=== PATIENT | female | born 1970 | race Two or more races ===

== ENCOUNTER 2019-05-07 10:46 | Inpatient (IN) | payer SELFPAY ==
[~2019-05-07] VITALS: Ht 165.1 cm; Wt 45.4 kg
[2019-05-07 10:51] VITALS: BP 128/88
[2019-05-07] MEDS ORDERED: CALC-1305 PO (13:00)
[2019-05-07] MEDS ORDERED: FERR220E24 PO (13:00)
[2019-05-07] MEDS ORDERED: METO-485 PO (13:00)
[2019-05-07] MEDS ORDERED: [UNRECOGNIZED DRUG - CODE] TP (13:00)
[2019-05-07] MEDS ORDERED: IBUP-2213 PO (13:00)
[2019-05-07] MEDS ORDERED: LACT10SO93 PO (13:00)
[2019-05-07] MEDS ORDERED: KETO2CRE3 TP (13:00)
[2019-05-07] MEDS ORDERED: FLEPED RC (13:00)
[2019-05-07] MEDS ORDERED: ACET-1182 PO (13:00)
[2019-05-07] MEDS ORDERED: [UNRECOGNIZED DRUG - CODE] PO (13:00)
[2019-05-07] MEDS ORDERED: BISA-213 RC (13:00)
[2019-05-07] MEDS ORDERED: IPRA3AMP2 IH (13:00)
[2019-05-07] MEDS ORDERED: MIRABULK PO (13:00)
[2019-05-07] MEDS ORDERED: MULT-153 PO (13:00)
[2019-05-07] MEDS ORDERED: MAGN400S60 PO (13:00)
[2019-05-07] MEDS ORDERED: BACL10TA4 PO (13:00)
[2019-05-07] MEDS ORDERED: METR250T2 VG (13:00)
[2019-05-07 13:02] LABS: BASOPHILS % (AUTO) 0.5 % (0.0-2.0); EOSINOPHILS # (AUTO) 0.1 K/uL (0-0.4); HEMATOCRIT 40.1 % (36-48); HEMOGLOBIN 12.8 g/dL (12.0-16.0); LYMPHOCYTES # (AUTO) 1.4 K/uL (2.5-16.5); LYMPHOCYTES % (AUTO) 19.1 % (20.5-51.1); MEAN CORPUSCULAR HEMOGLOBIN 26 pg (27-31); MEAN CORPUSCULAR HGB CONC 32 g/dL (33-37); MEAN CORPUSCULAR VOLUME 80.5 fL (80-94); MONOCYTES # (AUTO) 0.6 K/uL (0.8-1.0); MONOCYTES % (AUTO) 8.1 % (1.7-9.3); NEUTROPHILS # (AUTO) 5.4 K/uL (1.8-7.7); NEUTROPHILS % (AUTO) 71.3 % (42.2-75.2); PLATELET COUNT (AUTO) 267 K/uL (140-450); RED BLOOD CELL COUNT(AUTO) 4.98 MIL/uL (4.20-5.40); WHITE BLOOD COUNT (AUTO) 7.5 K/uL (4.8-10.8)
[2019-05-07 13:15] LABS: PROTHROMBIN TIME 9.6 secs (10.8-13.4)
[2019-05-07 13:17] LABS: ALBUMIN 3.5 g/dL (3.4-5.0); ANION GAP 11.5 (8-16); CARBON DIOXIDE 31.9 mmol/L (21-32); CREATININE 0.9 mg/dL (0.6-1.3); POTASSIUM 4.4 mmol/L (3.5-5.1); TOTAL BILIRUBIN 0.3 mg/dL (0.0-1.0)
[2019-05-07 14:11] VITALS: BP 113/73
[2019-05-07] MEDS ORDERED: LORazepam 2 MG/ML VIAL IVP PRN (17:25)
[2019-05-07] MEDS ORDERED: ALBUTEROL SULFATE/IPRATROPIU 3 ML SOL IH PRN (17:25)
[2019-05-07] MEDS ORDERED: ONDANSETRON 4 MG/2 ML VIAL IVP PRN (17:25)
[2019-05-07] MEDS: DEXT 5% / NACL 0.45% 1,000 ML IV SCH (17:32)
[2019-05-07 19:00] VITALS: BP 125/73
[2019-05-07 20:00] VITALS: BP 132/82
[2019-05-08] VITALS: BP 160/83
[2019-05-08] MEDS: DEXT 5% / NACL 0.45% 1,000 ML IV SCH ×3 (03:23→21:00)
[2019-05-08 04:00] VITALS: BP 119/71
[2019-05-08 07:22] LABS: BASOPHILS # (AUTO) 0.1 K/uL (0.00-0.22); BASOPHILS % (AUTO) 1.2 % (0.0-2.0); EOSINOPHILS # (AUTO) 0.1 K/uL (0-0.4); EOSINOPHILS % (AUTO) 1.2 % (0.0-4.0); HEMATOCRIT 37.4 % (36-48); HEMOGLOBIN 11.9 g/dL (12.0-16.0); LYMPHOCYTES # (AUTO) 1.2 K/uL (2.5-16.5); MEAN CORPUSCULAR HEMOGLOBIN 26 pg (27-31); MEAN CORPUSCULAR HGB CONC 32 g/dL (33-37); MEAN CORPUSCULAR VOLUME 80.7 fL (80-94); MONOCYTES # (AUTO) 0.4 K/uL (0.8-1.0); MONOCYTES % (AUTO) 7.7 % (1.7-9.3); NEUTROPHILS % (AUTO) 68.9 % (42.2-75.2); PLATELET COUNT (AUTO) 266 K/uL (140-450); RED BLOOD CELL COUNT(AUTO) 4.63 MIL/uL (4.20-5.40); RED CELL DISTRIBUTION WIDTH 14.9 % (11.6-13.7); WHITE BLOOD COUNT (AUTO) 5.9 K/uL (4.8-10.8)
[2019-05-08 07:26] LABS: CARBON DIOXIDE 29.8 mmol/L (21-32); CREATININE 0.9 mg/dL (0.6-1.3); POTASSIUM 3.8 mmol/L (3.5-5.1)
[2019-05-08 11:00] VITALS: BP 117/63
[2019-05-08] MEDS ORDERED: MORPHINE SULFATE 4 MG/ML SYR ONE (14:31)
[2019-05-08] MEDS ORDERED: MORPHINE SULFATE 4 MG/ML SYR IVP SCH (14:38)
[2019-05-08 19:00] VITALS: BP 115/83
[2019-05-09] VITALS: BP 139/82
[2019-05-09 07:10] LABS: BASOPHILS % (AUTO) 0.2 % (0.0-2.0); EOSINOPHILS # (AUTO) 0.1 K/uL (0-0.4); EOSINOPHILS % (AUTO) 1.3 % (0.0-4.0); HEMATOCRIT 35.8 % (36-48); HEMOGLOBIN 11.4 g/dL (12.0-16.0); LYMPHOCYTES # (AUTO) 1.2 K/uL (2.5-16.5); LYMPHOCYTES % (AUTO) 18.2 % (20.5-51.1); MEAN CORPUSCULAR HEMOGLOBIN 26 pg (27-31); MEAN CORPUSCULAR HGB CONC 32 g/dL (33-37); MEAN CORPUSCULAR VOLUME 81.2 fL (80-94); MONOCYTES # (AUTO) 0.5 K/uL (0.8-1.0); MONOCYTES % (AUTO) 7.9 % (1.7-9.3); NEUTROPHILS # (AUTO) 4.9 K/uL (1.8-7.7); NEUTROPHILS % (AUTO) 72.4 % (42.2-75.2); PLATELET COUNT (AUTO) 244 K/uL (140-450); RED BLOOD CELL COUNT(AUTO) 4.41 MIL/uL (4.20-5.40); WHITE BLOOD COUNT (AUTO) 6.8 K/uL (4.8-10.8)
[2019-05-09 07:20] LABS: ANION GAP 11.9 (8-16); CARBON DIOXIDE 30.9 mmol/L (21-32); CREATININE 0.8 mg/dL (0.6-1.3); POTASSIUM 3.8 mmol/L (3.5-5.1)
[2019-05-09 08:00] VITALS: BP 112/56
[2019-05-09] MEDS: DEXT 5% / NACL 0.45% 1,000 ML IV SCH ×2 (10:11→19:23)
[2019-05-09] MEDS ORDERED: ceFAZolin 1,000 MG VIAL ONE (14:02)
[2019-05-09] MEDS ORDERED: diphenhydrAMINE 50 MG/ML VIAL ONE (14:08)
[2019-05-09] MEDS ORDERED: fentaNYL 0.05 MG/ML VIAL ONE (14:09)
[2019-05-09] MEDS ORDERED: MIDAZOLAM 2 MG/2 ML VIAL ONE (14:09)
[2019-05-09] MEDS ORDERED: fentaNYL 0.05 MG/ML VIAL IVP ONE (14:13)
[2019-05-09] MEDS ORDERED: MIDAZOLAM 2 MG/2 ML VIAL IVP ONE (14:15)
[2019-05-09 16:00] VITALS: BP 131/84
[2019-05-10 00:15] VITALS: BP 130/93
[2019-05-10] MEDS: DEXT 5% / NACL 0.45% 1,000 ML IV SCH ×3 (02:39→17:09)
[2019-05-10 06:40] LABS: BASOPHILS % (AUTO) 0.2 % (0.0-2.0); EOSINOPHILS # (AUTO) 0.1 K/uL (0-0.4); EOSINOPHILS % (AUTO) 1.6 % (0.0-4.0); HEMATOCRIT 32.5 % (36-48); HEMOGLOBIN 10.4 g/dL (12.0-16.0); LYMPHOCYTES # (AUTO) 1.6 K/uL (2.5-16.5); LYMPHOCYTES % (AUTO) 22.5 % (20.5-51.1); MEAN CORPUSCULAR HEMOGLOBIN 26 pg (27-31); MEAN CORPUSCULAR HGB CONC 32 g/dL (33-37); MEAN CORPUSCULAR VOLUME 80.3 fL (80-94); MONOCYTES # (AUTO) 0.6 K/uL (0.8-1.0); MONOCYTES % (AUTO) 9.1 % (1.7-9.3); NEUTROPHILS # (AUTO) 4.7 K/uL (1.8-7.7); NEUTROPHILS % (AUTO) 66.6 % (42.2-75.2); PLATELET COUNT (AUTO) 215 K/uL (140-450); RED BLOOD CELL COUNT(AUTO) 4.05 MIL/uL (4.20-5.40); RED CELL DISTRIBUTION WIDTH 14.7 % (11.6-13.7)
[2019-05-10 07:01] LABS: ANION GAP 10.1 (8-16); CREATININE 0.9 mg/dL (0.6-1.3); POTASSIUM 4.1 mmol/L (3.5-5.1)
[2019-05-10] MEDS ORDERED: SENNA 8.6 MG TAB PO SCH (10:35)
[2019-05-10] MEDS ORDERED: MAGNESIUM CITRATE 300 ML BTL PO SCH (10:40)
[2019-05-10 16:00] VITALS: BP 128/78
[2019-05-11] MEDS ORDERED: LACTULOSE 20 GM/30 ML UDC PO SCH (09:00)
== END 2019-05-10 19:15 | DRG 393 ==
LOC: MED 10:46 → MTU 12:18
PROVIDERS: ADMIT Preventive Medicine Preventive Medicine/Occupational Environmental Medicine; ATTEND Preventive Medicine Preventive Medicine/Occupational Environmental Medicine
PROC: 0DH63UZ Insertion of Feeding Device into Stomach, Percutaneous Approach (ICD-10-PCS; principal; 2019-05-09 16:50)
DX: K94.23 Gastrostomy malfunction (principal); G82.50 Quadriplegia, unspecified; K21.9 Gastro-esophageal reflux disease without esophagitis; Y83.3 Surgical operation with formation of external stoma as the cause of abnormal reaction of the patient, or of later complication, without mention of misadventure at the time of the procedure; R13.10 Dysphagia, unspecified; F79 Unspecified intellectual disabilities; D64.9 Anemia, unspecified; Z74.01 Bed confinement status; Z88.1 Allergy status to other antibiotic agents
CPT/HCPCS: 36415; 43760; 80048; 80053; 85025; 85610; 85730; 87081; 99285; C1758; J0690; J1200; J2250; J2270; J3010; J7030; J7060; Q0092

== ENCOUNTER 2021-06-05 09:40 | Emergency (ER) | payer MEDICAID ==
[~2021-06-05] VITALS: Ht 172.7 cm; Wt 40.8 kg
[~2021-06-05 09:40] MED LIST: ACET-1182 PO; BACL10TA4 PO; BISA-213 RC; CALC-1305 PO; FERR220E24 PO; FLEPED RC; IBUP-2213 PO; IPRA3AMP2 IH; KETO2CRE3 TP; LACT10SO93 PO; MAGN400S60 PO; METO-485 PO; METR-520 VG; MIRABULK PO; MULT-2112 PO; [UNRECOGNIZED DRUG - CODE] PO; [UNRECOGNIZED DRUG - CODE] TP
--- NOTE | 2021-06-05 09:41 | NUR ---
BIBA TAKEN TO BED 1
[2021-06-05 09:55] VITALS: BP 151/107
--- NOTE | 2021-06-05 10:30 | NUR ---
PATIENT WAS SENT TO ER FROM [facility]F FOR LEFT THUMB EVALUATION REDNESS, SWELLING NO IMPROVEMENT WITH ANTIBIOTIC, NO FEVER/CHILLS REPORTED.
[2021-06-05 11:20] LABS: EOSINOPHILS # (AUTO) 0.1 K/uL (0-0.4); HEMOGLOBIN 12.6 g/dL (12.0-16.0); LYMPHOCYTES # (AUTO) 1.5 K/uL (2.5-16.5); LYMPHOCYTES % (AUTO) 25.7 % (20.5-51.1); MEAN CORPUSCULAR HEMOGLOBIN 27 pg (27-31); MEAN CORPUSCULAR HGB CONC 33 g/dL (33-37); MONOCYTES # (AUTO) 0.6 K/uL (0.8-1.0); MONOCYTES % (AUTO) 9.8 % (1.7-9.3); NEUTROPHILS # (AUTO) 3.8 K/uL (1.8-7.7); NEUTROPHILS % (AUTO) 63.5 % (42.2-75.2); PLATELET COUNT (AUTO) 186 K/uL (140-450); RED BLOOD CELL COUNT(AUTO) 4.75 MIL/uL (4.20-5.40); RED CELL DISTRIBUTION WIDTH 14.5 % (11.6-13.7); WHITE BLOOD COUNT (AUTO) 5.9 K/uL (4.8-10.8)
[2021-06-05 11:30] LABS: ALBUMIN 3.4 g/dL (3.4-5.0); ANION GAP 11.6 (8-16); CARBON DIOXIDE 27.7 mmol/L (21-32); CREATININE 0.8 mg/dL (0.6-1.3); POTASSIUM 4.3 mmol/L (3.5-5.1); TOTAL BILIRUBIN 0.4 mg/dL (0.0-1.0)
--- NOTE | 2021-06-05 12:15 | NUR ---
CALLED AND SPOKE WITH URVASHI, NURSE TAKING CARE OF PT. PT IS [facility] AT [facility], [facility] OF [facility] [place]. ([phone]). STATES SHE HAS BEEN TAKING KEFLEX 500MG QID X7 DAYS. DENIES ANY RECENT INJURY. DR COLLINS MADE AWARE
--- NOTE | 2021-06-05 13:50 | NUR ---
SPOKE WITH RUFUS HADLEY ([phone]), IN CHARGE OF PATIENT TRANSPORT OF [facility]. SHE STATED THAT SHE WILL CALL THE [facility] FOR SALES AND SERVICE REPRESENTATIVE AND WILL CALL US BACK.
[2021-06-05] MEDS ORDERED: CLIN300C2 PO (14:28)
[2021-06-05] MEDS ORDERED: BACITRACIN OINT 500 UNITS/GM PKT TP ONE ×3 (14:34→14:35)
--- NOTE | 2021-06-05 16:01 | NUR ---
CAREGIVERS FROM [facility] HERE TO TRANSPORT PT BACK TO FACILITY
[2021-06-05 16:09] VITALS: BP 152/92
--- NOTE | 2021-06-05 16:11 | NUR ---
PATIENT CONDITION STABLE D/C TO FACILITY WITH FIELD CAPTAIN AFTER CARE REVIEWED UNDERSTOOD, 1 PRESCRIPTION GIVEN FOR ANTIBIOTIC AND ADVISED FIELD CAPTAIN TO FOLLOW UP WITH [facility].
== END 2021-06-05 16:11 | disposition home or self-care (01) ==
LOC: MED 09:40
DX: S63.105A Unspecified dislocation of left thumb, initial encounter (principal); H54.7 Unspecified visual loss; K21.9 Gastro-esophageal reflux disease without esophagitis; Z79.899 Other long term (current) drug therapy; Z88.1 Allergy status to other antibiotic agents; Z98.890 Other specified postprocedural states; X58.XXXA Exposure to other specified factors, initial encounter; Y93.89 Activity, other specified; Y92.89 Other specified places as the place of occurrence of the external cause; Y99.8 Other external cause status
CPT/HCPCS: 36415; 73140; 80053; 85025; 99284

== ENCOUNTER 2023-05-01 11:10 | Emergency (ER) | payer MEDICAID ==
[~2023-05-01] VITALS: Ht 147.3 cm; Wt 54.0 kg
[~2023-05-01 11:10] MED LIST changes: +CLIN300C2 PO; -FERR220E24 PO; +[UNRECOGNIZED DRUG - CODE] PO
[2023-05-01 11:20] VITALS: BP 127/81; PULSE 85; RESP 14; TEMP 97.9; O2SAT 100
[2023-05-01 11:32] VITALS: O2SAT 100
[2023-05-01 13:03] LABS: BASOPHILS % (AUTO) 0.2 % (0.0-2.0); EOSINOPHILS # (AUTO) 0.2 K/uL (0-0.4); EOSINOPHILS % (AUTO) 3.9 % (0.0-4.0); HEMATOCRIT 38.4 % (36-48); HEMOGLOBIN 12.7 g/dL (12.0-16.0); LYMPHOCYTES # (AUTO) 1.4 K/uL (2.5-16.5); LYMPHOCYTES % (AUTO) 27.4 % (20.5-51.1); MEAN CORPUSCULAR HEMOGLOBIN 26 pg (27-31); MEAN CORPUSCULAR HGB CONC 33 g/dL (33-37); MEAN CORPUSCULAR VOLUME 78.9 fL (80-94); MONOCYTES # (AUTO) 0.8 K/uL (0.8-1.0); MONOCYTES % (AUTO) 14.9 % (1.7-9.3); NEUTROPHILS # (AUTO) 2.7 K/uL (1.8-7.7); NEUTROPHILS % (AUTO) 53.6 % (42.2-75.2); PLATELET COUNT (AUTO) 231 K/uL (140-450); RED BLOOD CELL COUNT(AUTO) 4.87 MIL/uL (4.20-5.40); RED CELL DISTRIBUTION WIDTH 15.7 % (11.6-13.7); WHITE BLOOD COUNT (AUTO) 5.1 K/uL (4.8-10.8)
[2023-05-01] MEDS ORDERED: IBUP100S26 PO (13:04)
[2023-05-01 13:15] LABS: ANION GAP 10.8 (8-16); CALCIUM 9.3 mg/dL (8.5-10.1); CARBON DIOXIDE 30.4 mmol/L (21-32); CREATININE 1.2 mg/dL (0.6-1.3); POTASSIUM 4.2 mmol/L (3.5-5.1)
[2023-05-01 13:29] VITALS: BP 127/81; PULSE 85; RESP 14; TEMP 97.9; O2SAT 100
== END 2023-05-01 13:30 | disposition home or self-care (01) ==
LOC: MED 11:10
DX: S82.092A Other fracture of left patella, initial encounter for closed fracture (principal); G82.50 Quadriplegia, unspecified; R41.0 Disorientation, unspecified; K21.9 Gastro-esophageal reflux disease without esophagitis; Z79.899 Other long term (current) drug therapy; Z88.1 Allergy status to other antibiotic agents; X58.XXXA Exposure to other specified factors, initial encounter; Y92.89 Other specified places as the place of occurrence of the external cause; Y93.89 Activity, other specified; Y99.8 Other external cause status
CPT/HCPCS: 29505; 36415; 73562; 80048; 85025; 99284; Q0092